=== PATIENT | female | born 1935 | race American Indian/Alaskan Native ===

== ENCOUNTER 2016-09-20 13:07 | Outpatient (CLI) | payer MEDICARE, MEDICAID ==
--- NOTE | 2016-09-21 08:26 | PET Report ---
PET SB TO MT INITIAL: HISTORY: Initial staging of left breast cancer. TECHNIQUE: 13.4 millicuries F-18 FDG was administered intravenously. Noncontrast CT images and PET images were obtained from the skull base to the proximal thighs. Fused images were reviewed on a workstation. The patient's blood glucose level measured 112. COMPARISON: None. FINDINGS: BRAIN: physiologic FDG uptake in the imaged brain. NECK: physiologic FDG uptake. CHEST WALL: An approximate 2 cm spiculated mass is identified in the central portion of the left breast with Max SUV measuring 9.6. There appeared to be multiple smaller satellite nodules scattered throughout the left breast with Max SUV measuring 4.1. Multifocal disease is suspected within the left breast. The right breast tissue is unremarkable. MEDIASTINUM: physiologic FDG uptake. LUNGS: physiologic FDG uptake. PLEURA/PERICARDIUM: physiologic FDG uptake. There are trace pleural effusions measuring less than 1 cm in thickness. No obvious pleural nodularity. THORACIC LYMPH NODES: A solitary 1.6 x 1.0 cm left axillary lymph node demonstrates a max SUV of 3.1. HEPATOBILIARY: physiologic FDG uptake. Mean liver SUV measures 4.0. 3 cm liver cyst is noted. PANCREAS: physiologic FDG uptake. SPLEEN: physiologic FDG uptake. ADRENAL GLANDS: physiologic FDG uptake. KIDNEYS/RENAL COLLECTING SYSTEMS: physiologic FDG uptake. Bilateral renal cysts are noted. BOWEL/MESENTERY: physiologic FDG uptake. PELVIC VISCERA: physiologic FDG uptake. ABDOMINAL/PELVIC LYMPH NODES: physiologic FDG uptake. MUSCULOSKELETAL: physiologic FDG uptake. IMPRESSION: An approximate 2 cm dominant hypermetabolic mass is identified in the left breast. There also appear to be multiple satellite nodules or infiltrative disease in the left breast as well. A solitary hypermetabolic left axillary lymph node is also identified. No disease is identified below the diaphragm. Trace pleural effusions of uncertain significance.
== END 2016-09-20 13:08 | disposition home or self-care (01) ==
LOC: PET 13:07
DX: C50.412 Malignant neoplasm of upper-outer quadrant of left female breast (principal)
CPT/HCPCS: 78815; A9552

== ENCOUNTER 2017-06-12 08:12 | Outpatient (CLI) | payer MEDICARE ==
[2017-06-12 09:56] LABS: Blood Urea Nitrogen 29 mg/dL (7-17)
[2017-06-12] MEDS ORDERED: NACL ONE (11:41)
--- NOTE | 2017-06-12 12:54 | Cat Scan Report ---
FINAL REPORT PROCEDURE: CT CHEST W CON TECHNIQUE: Consent was obtained. IV contrast was administered and axial sections and reformatted images were viewed through the chest. HISTORY: BREAST CANCER COMPARISON: None FINDINGS: Small bilateral pleural effusions are present. Heart is normal in size. There is no hilar or mediastinal lymphadenopathy. Left mastectomy is noted. Surgical clips are present within the left axilla. There is no pericardial effusion. There no thoracic or included abdominal aortic aneurysm or dissection. Cysts are present of both kidneys largest of the left upper pole posteriorly for 5.6 x 4.1 centimeters. A couple of hepatic dome cysts the largest of which is 1.4 x 2.0 centimeters is seen. There is no acute osseous abnormality. 1.8 millimeter nodular density of the right upper lobe laterally for example seen on series 3, image 26 is present. 3 millimeter nodular density at the left lung base posteriorly seen on image 76 is seen. There is mild pulmonary emphysema. Mild subsegmental atelectasis at the right lung base posteriorly and bibasilar anteriorly is seen. IMPRESSION: Small bilateral pleural effusions. Tiny nodular density of the right upper lobe and at the left lung base posteriorly. Follow-up CT in 3 months is recommended. Mild pulmonary emphysema. Radical left mastectomy Bilateral renal cysts. Hepatic cysts.
--- NOTE | 2017-06-12 15:22 | Cat Scan Report ---
FINAL REPORT PROCEDURE: CT ABDOMEN W CON TECHNIQUE: Computerized axial tomography of the abdomen was performed following the IV injection of iodinated nonionic contrast. HISTORY: BREAST CANCER COMPARISON: No prior studies are available for comparison. FINDINGS: Mild emphysematous changes are seen in the lung bases. There is some minimal dependent atelectasis present. Are 2 nonspecific 3 millimeter noncalcified pleural-based nodule in the left lower lobe posteriorly. There well-defined low-density nodules in the right and left lobes of the liver which appear to represent hepatic cysts. The largest is in the left lobe of the liver measuring 1.7 centimeters. Liver density appears mildly diffusely decreased suggesting fatty infiltration. The liver is otherwise unremarkable. The gallbladder, the adrenal glands and the pancreas are unremarkable. There are peripheral low-density nodules seen in the spleen which appear to represent small splenic cyst. The horvath of the antrum of the stomach are slightly more prominent than expected. I cannot exclude gastritis. Small hiatal hernia appears to be present. Several low-density nodules project from the renal cortex of both kidneys. The largest is on the left measuring 6.2 centimeters which appear to represent renal cortical cyst. No renal calculi are seen. There is no hydronephrosis. The ureters do not appear to be distended. There is a indeterminate calcifications seen on image 207 series 3 of the axial images, image 63 series 203 of the coronal reconstructions measuring 4.3 x 3.4 x 6.3 millimeters. I cannot exclude a nonobstructing ureteral calculus. This could represent a phlebolith next to the left ureter. The ureter is difficult to trace through this area. The kidneys and visualized ureters otherwise are unremarkable. Atherosclerotic changes are seen in the abdominal aorta and visualized portions of the iliac arteries without evidence of aneurysm. Nonspecific subcentimeter lymph nodes are visualized in the retroperitoneum. Bowel loops show no focal abnormalities. No evidence of bowel obstruction ascites or free intraperitoneal gas. There is a small umbilical hernia containing adipose tissue. Just superior to the umbilical hernia there is also an anterior abdominal wall hernia just to the right of midline containing adipose tissue. No herniated loops of bowel are identified. Degenerative changes are seen in the lumbar spine. No acute abnormalities are identified. IMPRESSION: Low-density nodule seen in the liver and kidneys as well as the spleen suggesting hepatic cysts, renal cortical cysts and splenic cyst. Indeterminate calcification left side of the retroperitoneum as described. This may represent a nonobstructing ureteral calculus versus a phlebolith adjacent to the left ureter. There is no hydronephrosis. Small umbilical hernia and anterior abdominal hernias are present as described. Emphysematous changes seen in the lung bases. Two nonspecific 3 millimeter pleural-based nodular densities visualized inferiorly in the left lower lobe as described. Follow-up CT scan of the chest recommended in 3 months to ensure stability.
== END 2017-06-12 08:13 | disposition home or self-care (01) ==
LOC: CT 08:12
DX: C50.412 Malignant neoplasm of upper-outer quadrant of left female breast (principal); J43.9 Emphysema, unspecified; J98.11 Atelectasis; R91.8 Other nonspecific abnormal finding of lung field; N28.89 Other specified disorders of kidney and ureter; I70.0 Atherosclerosis of aorta; K42.9 Umbilical hernia without obstruction or gangrene; K76.89 Other specified diseases of liver; K46.9 Unspecified abdominal hernia without obstruction or gangrene; D73.89 Other diseases of spleen; J90 Pleural effusion, not elsewhere classified; N28.1 Cyst of kidney, acquired; M47.896 Other spondylosis, lumbar region; Z90.12 Acquired absence of left breast and nipple
CPT/HCPCS: 36415; 71260; 74160; 82565; 84520; Q9967